=== PATIENT | male | born 1970 | race Caucasian/White ===

== ENCOUNTER 2020-02-10 17:03 | Emergency (ER) | payer BC, SELFPAY ==
--- NOTE | ~2020-02-10 | XR_ITS ---
EXAMINATION: XR chest 2V DATE: 02/10/2020 18:20 INDICATION: Shortness of breath TECHNIQUE: PA and lateral views of the chest are obtained. COMPARISON: 12/01/2006 FINDINGS: The lungs are free of acute opacities. There is no pleural effusion or pneumothorax. The ca rdiomediastinal silhouette is normal. There is mild thoracic spondylosis. IMPRESSION: 1. No acute cardiopulmonary abnormality. Reviewed, dictated and finalized at location A.
--- NOTE | ~2020-02-10 | CT_ITS ---
EXAMINATION: CTA chest PE protocol DATE: 02/10/2020 22:11 INDICATION: Weakness and dizziness TECHNIQUE: Computed tomography angiography (CTA) of the chest was performed with 100 mL Omnipaque-350 intravenous contrast timed to evaluate the pulmonary arteries. Coronal maximum intensity projection 3D-reconstructions were created by the technologist. The dose-length product (DLP) was 1036.43 mGy-cm . Automated exposure control and iterative reconstruction technique were employed. COMPARISON: None. FINDINGS: The pulmonary arteries are moderately Well-opacified. No pulmonary embolism is identified. The lungs are free of acute opacities. There is no pleural effusion or pneumothorax. No pathologicall y enlarged thoracic lymph nodes are identified. The heart size is normal. IMPRESSION: 1. No pulmonary embolism or acute cardiopulmonary abnormality. Reviewed, dictated and finalized at location A.
--- NOTE | 2020-02-10 17:15 | ECG_ITS ---
Measurements Intervals [place] Rate: 97 P: 8 FL: 150 QRS: -24 QRSD: 96 T: 12 QT: 331 QTc: 422 Interpretive Statements SINUS RHYTHM DELAYED PRECORDIAL R/S TRANSITION HIGH LATERAL INFARCT, AGE INDETERMINATE BORDERLINE T WAVE ABNORMALITY- INFERIOR LEADS ABNORMAL ECG Electronically Signed On 02-10-2020 20:46:03 CDT by Avery Moulton D.O.
[2020-02-10 18:21] VITALS: BP 154/94; PULSE 102; RESP 20; TEMP 35.8; O2SAT 100
[2020-02-10 18:40] LABS: Basophils Percent Auto 0.3 % (0.2-1.2); Eosinophils Absolute Auto 0.1 K/mm3 (0-0.3); Eosinophils Percent Auto 0.4 % (0-4.4); Hematocrit 48.2 % (42.0-52.0); Hemoglobin 16.4 g/dL (14.0-18.0); Immature Granulocyte Absolute 0.07 K/mm3 (0.00-0.031); Immature Granulocyte Percent A 0.6 % (0-0.5); Lymphocytes Absolute Auto 1.16 K/mm3 (0.9-3.2); Lymphocytes Percent Auto 10.3 % (18.3-44.2); Mean Corpuscular Hemoglobin 28.4 pg (26-34); Mean Corpuscular Volume 83.4 fl (80-100); Mean Platelet Volume 8.8 fl (7.4-10.4); Monocytes Absolute Auto 0.8 K/mm3 (0.1-0.6); Monocytes Percent Auto 6.9 % (2.6-8.5); Neutrophils Absolute Auto 9.2 K/mm3 (1.3-6.7); Neutrophils Percent Auto 81.5 % (45.5-73.1); Platelet Count Result 297 k/mm3 (150-375); Red Blood Count 5.78 M/mm3 (4.6-6.20); Red Cell Distribution Width 12.4 % (11.5-14.5); White Blood Count 11.3 K/mm3 (4.5-10.0)
[2020-02-10 18:55] LABS: Anion Gap 11 mmol/L (8-16); Blood Urea Nitrogen 14 mg/dL (9-20); Calcium 9.6 mg/dL (8.4-10.2); Carbon Dioxide 27 mmol/L (22-30); Chloride 103 mmol/L (98-107); Estimated CRCL calculation 103 ml/min; Estimated Glomerular Filt Rate > 60; Glucose 104 mg/dL (75-110); Potassium 4.1 mmol/L (3.4-5.0); Sodium 141 mmol/L (137-145)
[2020-02-10 19:47] VITALS: BP 162/110; PULSE 95; RESP 18; O2SAT 98
[2020-02-10 19:48] VITALS: PULSE 96; RESP 14; O2SAT 93
--- NOTE | 2020-02-10 20:21 | ED.GENADULT ---
HPI - General Adult General Chief complaint: Dizziness Stated complaint: SOB, chest tightness,dizzy, covid + 3 weeks ago Time Seen by Provider: 02/10/20 19:55 Source: patient Mode of arrival: ambulatory Limitations: no limitations History of Present Illness HPI narrative: 49 years old white male presents with sudden onset of dizziness and chest tightness started while working around the house this morning. Patient also feels weak in the knees and the heart feeling like before vomiting. Also been feeling foggy. Patient denies any aggravating or relieving factors. Patient denies any fever, chills, nausea, vomiting, diarrhea, abdominal pain, back pain or shortness of breath. Patient reports a history of COVID-19 infection 3 weeks ago, was released to go back to work 1 week ago, patient report has been doing okay without any symptoms. Patient is a smoker, drinks occasionally, history of asthma. EKG on arrival showed normal sinus rhythm at 97 bpm When I went see the patient in the room his heart rate was running 112 bpm. Related Data Home Medications Medication Instructions Recorded Confirmed albuterol sulfate [ProAir HFA] 2 puff INHALATION QID 02/10/20 fluticasone propion-salmeterol 1 inh INHALATION Q12H 02/10/20 [Advair Diskus] Allergies Allergy/AdvReac Type Severity Reaction Status Date / Time No Known Allergies Allergy Verified 02/10/20 18:27 Review of Systems Review of Systems: Narrative: CONSTITUTIONAL: Denies fever, chills, or sweats. EYES: Denies visual changes, redness, or discharge. ENT: Denies rhinorrhea, congestion, sore throat, or otalgia. CARDIOVASCULAR: Denies chest pain, palpitations, or edema. RESPIRATORY: Denies cough or dyspnea. GASTROINTESTINAL: Denies abdominal pain, nausea, vomiting, or diarrhea. GENITOURINARY: Denies dysuria or hematuria. SKIN: Denies rash or itching. MUSCULOSKELETAL: Denies back pain, joint pain, or myalgia. NEUROLOGIC: Denies headache, numbness, or weakness. PSYCHIATRIC: Denies anxiety or depression. [facility] Past Medical History Medical History COVID-19 Social History Social History Gender identity (if verbalized by the patient): Male Sexual Orientation (if Verbalized by the Patient): Straight or Heterosexual Exam Narrative: Exam Narrative: General appearance: Well-developed, well-nourished Skin: Normal color Head: Normocephalic, nontraumatic Eyes: Clear conjunctiva ENT: Oropharynx normal, ears normal, nose normal Neck: Supple, nontender Chest and respiratory: Airway patent, no respiratory distress, no accessory muscle use Heart: Regular rate/rhythm Abdomen: Soft, nontender, no organomegaly, quiet bowel sounds Vascular: Normal peripheral pulses, normal capillary refill. Musculoskeletal: Normal range of motion, nontender back Neurologic: Alert and oriented ?3, [employer] is normal as tested, no gross motor deficit Course Course Emergency Course: Stable Reevaluation(s) Reevaluation #1: Patient feeling great, asymptomatic and ready to go home. Date: 02/10/20 Time: 23:22 Vital Signs Vital signs: Vital Signs Temperature 35.8 C L 02/10/20 18:21 Pulse Rate 102 H 02/10/20 18:21 Respiratory Rate 20 02/10/20 18:21 Blood Pressure 154/94 H 02/10/20 18:21 Pulse Oximetry 100 02/10/20 18:21 Temperature 35.8 C L 02/10/20 18:21 Pulse Rate 96 02/10/20 19:48 Respiratory Rate 14 02/10/20 19:48 Blood Pressure 162/110 H 02/10/20 19:47 Pulse Oximetry 93 02/10/20 19:48 Medical Decision Making MDM Narrative Medical decision making narrative: Patient presents with dizz
[2020-02-10 20:39] LABS: D Dimer 0.28 ug/mL (<0.48)
[2020-02-10 20:45] LABS: Alveolar/Arterial O2 Gradient 43.8 mmHg; Base Excess ABG 1.3 mEq/l (+/-2.0); Fractional Inspired Oxygen 21 %; HCO3 ABG 24.9 mEq/l (22.0-26.0); Modified Allen's Test Pass; Oxygen Content ABG 21.6 %vol (16.0-22.0); Oxygen Saturation ABG 92.9 % (95.0-100.0); Oxyhemoglobin 93.3 % THb (90.0-100.0); PCO2 ABG 36.7 mmHg (35.0-45.0); PO2 FiO2 Ratio Arterial Blood 2.95 %; Site Drawn RIGHT RADIAL; Total Hemoglobin 16.5 g/dL (12.0-18.0)
[2020-02-10 20:46] LABS: Device ROOM AIR
[2020-02-10 20:49] LABS: Troponin I < 0.012 ng/mL (0.000-0.034)
[2020-02-10 23:23] VITALS: BP 118/72; PULSE 72; RESP 16; O2SAT 98
== END 2020-02-10 23:28 | disposition home or self-care (01) ==
PROVIDERS: Emergency Provider Emergency Medicine; PCP Internal Medicine
DX: R09.02 Hypoxemia (principal); R42 Dizziness and giddiness; R94.31 Abnormal electrocardiogram [ECG] [EKG]
CPT/HCPCS: 36415; 36600; 71046; 71275; 80048; 82805; 84484; 85025; 85380; 93005; 99284; Q9967

== ENCOUNTER 2023-06-08 13:18 | Emergency (ER) | payer BC, SELFPAY ==
--- NOTE | ~2023-06-08 | XR_ITS ---
EXAM: XR finger 3rd LT min 2V DATE: 06/08/2023 13:55 HISTORY: lac TO DISTAL FINGER . COMPARISON: None available. FINDINGS: Normal mineralization. Linear osseous defect in the lateral aspect of the third distal pha lanx tuft. No lytic or blastic lesion. Joint spaces and physes are maintained. No erosion or perioste al change. Soft tissue irregularity over the tip of the third finger. IMPRESSION: Osseous defect in the lateral aspect of the left third distal tuft. Reviewed, dictated and finalized at location K. [facility]
--- NOTE | 2023-06-08 14:18 | ED.WOUNDLAC ---
HPI - Wound/Laceration General Chief Complaint: Wound/Laceration Stated Complaint: finger lac Time Seen by Provider: 06/08/23 13:46 Source: patient Mode of arrival: ambulatory Limitations: no limitations History of Present Illness HPI narrative: Patient is a 52 y/o male who presents to the ED with c/o laceration to his left 3rd digit. Patient reports he accidentally hit his hand against a table saw blade that had not finished spinning. He sustained a laceration to the distal tip of his left 3rd finger. Sensation intact. Denies any other injuries. Tetanus unknown. Related Data Home Medications Medication Instructions Recorded Confirmed albuterol sulfate 90 mcg/actuation 2 puff inhalation QID 02/10/20 aerosol inhaler (ProAir HFA) fluticasone 250 mcg-salmeterol 50 1 inh inhalation Q12H 02/10/20 mcg/dose blistr powdr for inhalation (Advair Diskus) Allergies Allergy/AdvReac Type Severity Reaction Status Date / Time No Known Allergies Allergy Verified 02/10/20 18:27 Review of Systems Review of Systems: CONSTITUTIONAL: Denies fever, chills, or sweats. MUSCULOSKELETAL: See HPI. NEUROLOGIC: Denies headache, dizziness, numbness, or weakness. All systems reviewed & are unremarkable except as noted in HPI and below PMFSH Past Medical History Medical History (Updated 06/08/23 @ 15:46 by Kandy Knott PA-C) COVID-19 Social History Social History Gender identity (if verbalized by the patient): Male Sexual Orientation (if Verbalized by the Patient): Straight or Heterosexual Exam Narrative: GENERAL: Well appearing, well-nourished, non-toxic, in no acute distress. HEAD: Normocephalic, atraumatic. RESPIRATORY: Airway patent, respirations nonlabored. CARDIOVASCULAR: Regular rate and rhythm. Radial pulses 2+ MUSCULOSKELETAL: Moves all extremities. No gross deformities. 2 small lacerations to L 3rd digit, to lateral edge of distal nail along with laceration to middle distal finger tip pad. No active bleeding. Nail intact. Cuticle intact. Sharp touch sensation intact. SKIN: Warm, dry, normal color. NEURO: A&O X3. Speech clear. PSYCHIATRIC: Appropriate mood and affect. Normal interaction. Course Vital Signs Vital signs: Vital Signs Temperature 98.0 F 06/08/23 15:00 Pulse Rate 71 06/08/23 15:00 Respiratory Rate 18 06/08/23 15:00 Blood Pressure 132/71 06/08/23 15:00 Pulse Oximetry 100 06/08/23 15:00 Temperature 98.0 F 06/08/23 15:00 Pulse Rate 71 06/08/23 15:00 Respiratory Rate 18 06/08/23 15:00 Blood Pressure 132/71 06/08/23 15:00 Pulse Oximetry 100 06/08/23 15:00 Procedures Laceration Laceration 1: Date: 06/08/23 Time: 15:10 Site: hand Side (If applicable): left (3rd digit) Size (cm): 1.5 Description: linear Depth: simple, single layer Local Anesthetic: other anesthetic (digital block) Pre-repair: wound explored, irrigated and irrigated extensively ====== Skin Level ====== Skin layer closed with: nylon Size (cm): 5-0 Number of sutures: 10 Technique: simple, interrupted ====== Subcutaneous Layer ====== ====== Muscle Layer ====== ====== Tendon Layer ====== Nerve Block Nerve Block 1: Nerve block date: 06/08/23 Nerve block time: 15:00 Time out performed: Yes Local Anesthetic: lidocaine 1% Amount of anesthesia used (mL): 4 Side: left Nerve Blocks: digital (3rd digit) Procedure Successful: Yes Patient Tolerated Procedure: well and no complications Complications: none MDM - Wound/Laceration MDM Narrative Medical decision making narrative: Table saw injury to L 3rd digit. X-ray with distal tuft abnormality, concerning for fracture. Will treat as such. Open fx. Keflex Rx'd. Digital nerve block p
[2023-06-08] MEDS: TETANUS,DIPHTHERIA,AC PERTUSSIS ADULT (0.5 ML) BOOSTRIX IM (14:29)
[2023-06-08 15:00] VITALS: BP 132/71; PULSE 71; RESP 18; TEMP 36.7; O2SAT 100
== END 2023-06-08 16:08 | disposition home or self-care (01) ==
PROVIDERS: Emergency Provider Physician Assistant; PCP Internal Medicine
DX: S62.633B Displaced fracture of distal phalanx of left middle finger, initial encounter for open fracture (principal); Z23 Encounter for immunization; Z86.16 Personal history of COVID-19
CPT/HCPCS: 12001; 29130; 73140; 90471; 90715; 99283; 99284